=== PATIENT | female | born 1970 | race American Indian/Alaskan Native ===

== ENCOUNTER 2023-08-02 12:36 | Emergency (ER) | payer MEDICAID | END 2023-08-02 12:56 | disposition left against medical advice (07) | LOC: DL.ED 12:36 | DX: Z53.21 Procedure and treatment not carried out due to patient leaving prior to being seen by health care provider (principal) ==

== ENCOUNTER 2023-08-02 17:03 | Emergency (ER) | payer MEDICAID ==
[2023-08-02 18:42] LABS: CORONAVIRUS COVID-19 NAA NEGATIVE (NEGATIVE); INFLUENZA A NAA NEGATIVE (NEGATIVE); INFLUENZA B NAA NEGATIVE (NEGATIVE); RESPIRATORY SYNCYTIAL VIR NAA NEGATIVE (NEGATIVE)
== END 2023-08-02 19:00 | disposition home or self-care (01) ==
LOC: DL.ED 17:03
DX: J04.0 Acute laryngitis (principal); M76.62 Achilles tendinitis, left leg; I10 Essential (primary) hypertension; F17.210 Nicotine dependence, cigarettes, uncomplicated; Z20.822 Contact with and (suspected) exposure to COVID-19
CPT/HCPCS: 0241U; 87081; 87430; 99282; 99283

== ENCOUNTER 2023-08-22 17:56 | Emergency (ER) | payer MEDICAID ==
[2023-08-22] MEDS ORDERED: Take Home: predniSONE 20 MG, 4 Tab Pack PO ONE (18:12)
[2023-08-22] MEDS ORDERED: Amoxicillin 500 MG Cap PO ONE (18:12)
[2023-08-22] MEDS ORDERED: Take Home: Amoxicillin 500 MG, 6 Cap Pack PO ONE (18:12)
[2023-08-22] MEDS ORDERED: diphenhydrAMINE 50 MG Cap PO ONE (18:12)
[2023-08-22] MEDS ORDERED: predniSONE 20 MG Tab PO ONE (18:12)
== END 2023-08-22 19:10 | disposition home or self-care (01) ==
LOC: DL.ED 17:56
DX: L23.9 Allergic contact dermatitis, unspecified cause (principal); J04.0 Acute laryngitis; K04.7 Periapical abscess without sinus
CPT/HCPCS: 70360; 99283; A9270; J7512; Q0163

== ENCOUNTER 2023-08-26 14:50 | Emergency (ER) | payer MEDICAID | END 2023-08-26 15:25 | disposition left against medical advice (07) | LOC: DL.ED 14:50 | DX: Z53.21 Procedure and treatment not carried out due to patient leaving prior to being seen by health care provider (principal) | CPT/HCPCS: 99283 ==

== ENCOUNTER 2023-08-27 11:01 | Emergency (ER) | payer MEDICAID | END 2023-08-27 12:19 | disposition home or self-care (01) | LOC: DL.ED 11:01 | DX: S62.646A Nondisplaced fracture of proximal phalanx of right little finger, initial encounter for closed fracture (principal); I10 Essential (primary) hypertension; Z79.899 Other long term (current) drug therapy; W00.0XXA Fall on same level due to ice and snow, initial encounter; Y93.01 Activity, walking, marching and hiking | CPT/HCPCS: 73120-RT; 99283 ==

== ENCOUNTER 2023-12-09 20:22 | Emergency (ER) | payer MEDICAID | END 2023-12-09 20:50 | disposition home or self-care (01) | LOC: DL.ED 20:22 | DX: F10.120 Alcohol abuse with intoxication, uncomplicated (principal); I10 Essential (primary) hypertension; Y90.9 Presence of alcohol in blood, level not specified | CPT/HCPCS: 99283 ==

== ENCOUNTER 2024-01-16 11:29 | Emergency (ER) | payer MEDICAID ==
[2024-01-16 12:04] LABS: BASOPHILS PERCENT AUTO 0.2 % (0.0-1.0); EOSINOPHILS PERCENT AUTO 3.9 % (1.0-3.0); HEMATOCRIT 36.7 % (37.0-47.0); HEMOGLOBIN 12.1 g/dL (12.0-16.0); LYMPHOCYTES PERCENT AUTO 22.5 % (20.5-50.1); MONOCYTES PERCENT AUTO 7.1 % (2-8); NEUTROPHILS PERCENT AUTO 66.3 % (42.2-75.2); PLATELET COUNT,PLT 318 10^3/uL (150-450); RED BLOOD CELL COUNT 4.17 10^6/uL (4.2-5.4); WHITE BLOOD CELL COUNT,WBC 5.4 10^3/uL (5.0-10.0)
[2024-01-16 12:15] LABS: APPEARANCE,URINE CLEAR (CLEAR); BILIRUBIN,URINE NEGATIVE (NEGATIVE); COLOR,URINE LIGHT YELLOW (YELLOW); GLUCOSE,URINE NEGATIVE (NEGATIVE); KETONES,URINE NEGATIVE (NEGATIVE); LEUKOCYTE ESTERASE,URINE NEGATIVE (NEGATIVE); NITRITE,URINE NEGATIVE (NEGATIVE); OCCULT BLOOD,URINE NEGATIVE (NEGATIVE); PROTEIN,URINE NEGATIVE (NEGATIVE); UROBILINOGEN,URINE 0.2 mg/dL (0.2-1.0)
[2024-01-16 12:17] LABS: AMPHETAMINES,URINE NEGATIVE (NEGATIVE); BARBITURATES,URINE NEGATIVE (NEGATIVE); BENZODIAZEPINE,URINE NEGATIVE (NEGATIVE); MDMA (ECSTASY), URINE NEGATIVE (NEGATIVE); METHADONE,URINE NEGATIVE (NEGATIVE); METHAMPHETAMINES,URINE NEGATIVE (NEGATIVE); OPIATES,URINE NEGATIVE (NEGATIVE); OXYCODONE,URINE NEGATIVE (NEGATIVE); PHENCYCLIDINE,URINE NEGATIVE (NEGATIVE); TCA,URINE NEGATIVE (NEGATIVE)
[2024-01-16] MEDS: LORazepam 2 MG/ML SDV IVPUSH ONE (12:22)
[2024-01-16] MEDS: Venlafaxine 150 MG Cap.ER PO ONE ×2 (12:25→13:43)
[2024-01-16] MEDS: Sodium Chloride 0.9% 1,000 ML IV ONE (12:26)
[2024-01-16] MEDS: Sodium Chloride 0.9% 10 ML Syringe FLUSH PRN (12:26)
[2024-01-16 12:28] LABS: A/G RATIO 0.9; ALANINE AMINOTRANSFERASE,ALT 28 U/L (14-59); ALBUMIN 3.6 g/dL (3.4-5.0); ALKALINE PHOSPHATASE 143 U/L (46-116); ANION GAP 15.3 mEq/L (7-13); ASPARTATE AMNIOTRANSFERASE,AST 16 U/L (15-37); BILIRUBIN TOTAL 0.3 mg/dL (0.2-1.0); BLOOD UREA NITROGEN,BUN 12 mg/dL (7-18); BUN/CREATININE RATIO 16.7 (No establ ref range); CALCIUM 8.7 mg/dL (8.5-10.1); CARBON DIOXIDE,CO2 25 mmol/L (21-32); CHLORIDE,CL 104 mmol/L (98-107); CREATININE 0.72 mg/dL (0.55-1.02); EST CRCL DRUG DOSING (CG) 69.82 mL/min; ESTIMATED GFR 99 mL/min (>=60); ETHANOL BLOOD MEDICAL < 3 mg/dL (0); GLUCOSE RANDOM 119 mg/dL (70-99); LIPASE 41 U/L (16-77); POTASSIUM,K 4.3 mmol/L (3.5-5.1); PROTEIN TOTAL,TP 7.6 g/dL (6.4-8.2); SODIUM,NA 140 mmol/L (136-145)
[2024-01-16] MEDS: Take Home: LORazepam 1 MG Tab, 2 Tab Pack PO ONE (13:43)
== END 2024-01-16 13:43 | disposition home or self-care (01) ==
LOC: DL.ED 11:29
DX: F43.22 Adjustment disorder with anxiety (principal); T43.205A Adverse effect of unspecified antidepressants, initial encounter; I10 Essential (primary) hypertension; Z88.8 Allergy status to other drugs, medicaments and biological substances
CPT/HCPCS: 36415; 71045; 80053; 80305; 80307; 81003; 83690; 84484; 85025; 93005; 96361; 96374; 99285; A9270; J2060; J7030; 93010; 99284; J3490

== ENCOUNTER 2025-01-14 16:18 | Emergency (ER) | payer MEDICAID, OTHER ==
[2025-01-14] MEDS: Acetaminophen 500 MG Tab PO ONE (16:56)
[2025-01-14] MEDS: Ketorolac 30 MG/ML SDV IM ONE (16:57)
[2025-01-14] MEDS: Take Home: Cyclobenzaprine 10 MG Tab, 4 Tab Pack PO ONE (16:57)
[2025-01-14] MEDS: Cyclobenzaprine 10 MG Tab PO ONE (16:57)
== END 2025-01-14 17:08 | disposition home or self-care (01) ==
LOC: DL.ED 16:18
DX: M62.830 Muscle spasm of back (principal); I10 Essential (primary) hypertension; Z79.899 Other long term (current) drug therapy
CPT/HCPCS: 96372; 99283; 99284; A9270; J1885

== ENCOUNTER 2025-01-20 21:10 | Emergency (ER) | payer MEDICAID ==
[2025-01-20 21:33] LABS: BASOPHILS PERCENT AUTO 0.3 % (0.0-1.0); EOSINOPHILS PERCENT AUTO 3.4 % (1.0-3.0); HEMATOCRIT 35.2 % (37.0-47.0); HEMOGLOBIN 12.7 g/dL (12.0-16.0); LYMPHOCYTES PERCENT AUTO 34.7 % (20.5-50.1); MEAN CORPUSCULAR HGB CONC 36.1 g/dL (33.0-35.0); MEAN CORPUSCULAR VOLUME 83.2 fL (80-100); NEUTROPHILS PERCENT AUTO 53.6 % (42.2-75.2); PLATELET COUNT,PLT 308 10^3/uL (150-450); RED BLOOD CELL COUNT 4.23 10^6/uL (4.2-5.4); WHITE BLOOD CELL COUNT,WBC 6.8 10^3/uL (5.0-10.0)
[2025-01-20 22:02] LABS: A/G RATIO 0.78; ALBUMIN 3.1 g/dL (3.4-5.0); ANION GAP 13.4 mEq/L (7-13); BILIRUBIN TOTAL 0.2 mg/dL (0.2-1.0); BUN/CREATININE RATIO 14.1 (No establ ref range); CALCIUM 8.3 mg/dL (8.5-10.1); CREATININE 0.71 mg/dL (0.55-1.02); EST CRCL DRUG DOSING (CG) 76.4 mL/min; MAGNESIUM 2.2 mg/dL (1.8-2.4); POTASSIUM,K 3.4 mmol/L (3.5-5.1); PROTEIN TOTAL,TP 7.1 g/dL (6.4-8.2)
[2025-01-20 22:02] LABS: APPEARANCE,URINE CLEAR (CLEAR); BILIRUBIN,URINE NEGATIVE (NEGATIVE); COLOR,URINE YELLOW (YELLOW); GLUCOSE,URINE NEGATIVE (NEGATIVE); KETONES,URINE NEGATIVE (NEGATIVE); LEUKOCYTE ESTERASE,URINE NEGATIVE (NEGATIVE); NITRITE,URINE NEGATIVE (NEGATIVE); OCCULT BLOOD,URINE NEGATIVE (NEGATIVE); PROTEIN,URINE NEGATIVE (NEGATIVE); UROBILINOGEN,URINE 0.2 mg/dL (0.2-1.0)
[2025-01-20 22:03] LABS: AMPHETAMINES,URINE NEGATIVE (NEGATIVE); BARBITURATES,URINE NEGATIVE (NEGATIVE); BENZODIAZEPINE,URINE NEGATIVE (NEGATIVE); MDMA (ECSTASY), URINE NEGATIVE (NEGATIVE); METHADONE,URINE NEGATIVE (NEGATIVE); METHAMPHETAMINES,URINE NEGATIVE (NEGATIVE); OPIATES,URINE NEGATIVE (NEGATIVE); OXYCODONE,URINE NEGATIVE (NEGATIVE); PHENCYCLIDINE,URINE NEGATIVE (NEGATIVE); TCA,URINE NEGATIVE (NEGATIVE)
== END 2025-01-21 05:30 | disposition home or self-care (01) ==
LOC: DL.ED 21:10
DX: F10.129 Alcohol abuse with intoxication, unspecified (principal); I10 Essential (primary) hypertension; Z79.899 Other long term (current) drug therapy
CPT/HCPCS: 36415; 80053; 80305-QW; 80307; 81003; 83690; 83735; 85025; 99283; 99284

== ENCOUNTER 2025-01-28 01:14 | Emergency (ER) | payer MEDICAID ==
[2025-01-28] MEDS ORDERED: Sodium Chloride 0.9% 10 ML Syringe FLUSH PRN (02:15)
[2025-01-28 03:33] LABS: BASOPHILS PERCENT AUTO 0.2 % (0.0-1.0); EOSINOPHILS PERCENT AUTO 2.5 % (1.0-3.0); HEMATOCRIT 35.5 % (37.0-47.0); HEMOGLOBIN 11.4 g/dL (12.0-16.0); LYMPHOCYTES PERCENT AUTO 22.6 % (20.5-50.1); MEAN CORPUSCULAR HGB CONC 32.1 g/dL (33.0-35.0); MEAN CORPUSCULAR VOLUME 83.9 fL (80-100); MONOCYTES PERCENT AUTO 6.4 % (2-8); NEUTROPHILS PERCENT AUTO 68.3 % (42.2-75.2); PLATELET COUNT,PLT 308 10^3/uL (150-450); RED BLOOD CELL COUNT 4.23 10^6/uL (4.2-5.4); WHITE BLOOD CELL COUNT,WBC 6.4 10^3/uL (5.0-10.0)
[2025-01-28 04:08] LABS: ANION GAP 12.6 mEq/L (7-13); BILIRUBIN TOTAL 0.2 mg/dL (0.2-1.0); BUN/CREATININE RATIO 9.9 (No establ ref range); CREATININE 0.71 mg/dL (0.55-1.02); EST CRCL DRUG DOSING (CG) 73.19 mL/min; MAGNESIUM 2.2 mg/dL (1.8-2.4); POTASSIUM,K 3.6 mmol/L (3.5-5.1); PROTEIN TOTAL,TP 7.1 g/dL (6.4-8.2)
[2025-01-28 04:11] LABS: A/G RATIO 0.73
== END 2025-01-28 06:36 | disposition home or self-care (01) ==
LOC: DL.ED 01:14
DX: F10.120 Alcohol abuse with intoxication, uncomplicated (principal); I10 Essential (primary) hypertension; F17.200 Nicotine dependence, unspecified, uncomplicated; Z79.899 Other long term (current) drug therapy
CPT/HCPCS: 36415; 80053; 80307; 83690; 83735; 85025; 99284

== ENCOUNTER 2025-01-31 12:45 | Emergency (ER) | payer MEDICAID ==
[2025-01-31] MEDS ORDERED: Sodium Chloride 0.9% 10 ML Syringe FLUSH PRN (13:08)
[2025-01-31] MEDS: Sodium Chloride 0.9% 1,000 ML IV SCH (13:48)
[2025-01-31] MEDS: Ondansetron 4 MG/2 ML SDV IVPUSH ONE (13:48)
[2025-01-31 14:13] LABS: BASOPHILS PERCENT AUTO 0.2 % (0.0-1.0); EOSINOPHILS PERCENT AUTO 2.2 % (1.0-3.0); HEMATOCRIT 39.4 % (37.0-47.0); HEMOGLOBIN 13.2 g/dL (12.0-16.0); LYMPHOCYTES PERCENT AUTO 20.2 % (20.5-50.1); MEAN CORPUSCULAR HEMOGLOBIN 28.2 pg (27.0-34.0); MEAN CORPUSCULAR HGB CONC 33.5 g/dL (33.0-35.0); MEAN CORPUSCULAR VOLUME 84.2 fL (80-100); MONOCYTES PERCENT AUTO 7.2 % (2-8); NEUTROPHILS PERCENT AUTO 70.2 % (42.2-75.2); PLATELET COUNT,PLT 313 10^3/uL (150-450); RED BLOOD CELL COUNT 4.68 10^6/uL (4.2-5.4); WHITE BLOOD CELL COUNT,WBC 8.6 10^3/uL (5.0-10.0)
[2025-01-31 14:32] LABS: ALBUMIN 3.3 g/dL (3.4-5.0); ANION GAP 12.4 mEq/L (7-13); BILIRUBIN TOTAL 0.2 mg/dL (0.2-1.0); BUN/CREATININE RATIO 3.7 (No establ ref range); CALCIUM 8.7 mg/dL (8.5-10.1); CREATININE 0.82 mg/dL (0.55-1.02); EST CRCL DRUG DOSING (CG) 57.81 mL/min; MAGNESIUM 2.2 mg/dL (1.8-2.4); POTASSIUM,K 4.4 mmol/L (3.5-5.1); PROTEIN TOTAL,TP 7.8 g/dL (6.4-8.2)
[2025-01-31 14:33] LABS: A/G RATIO 0.73
== END 2025-01-31 17:00 | disposition home or self-care (01) ==
LOC: DL.ED 12:45
DX: F10.120 Alcohol abuse with intoxication, uncomplicated (principal); I10 Essential (primary) hypertension; Z79.899 Other long term (current) drug therapy
CPT/HCPCS: 36415; 80053; 80307; 83690; 83735; 85025; 93005; 93010; 96361; 96374; 99284; J2405; J7030

== ENCOUNTER 2025-02-28 18:13 | Emergency (ER) | payer MEDICAID | END 2025-02-28 19:19 | disposition home or self-care (01) | LOC: DL.ED 18:13 | DX: S62.502A Fracture of unspecified phalanx of left thumb, initial encounter for closed fracture (principal); I10 Essential (primary) hypertension; Z79.899 Other long term (current) drug therapy; V19.9XXA Pedal cyclist (driver) (passenger) injured in unspecified traffic accident, initial encounter | CPT/HCPCS: 73140-FA; 73630-LT; 99283 ==

== ENCOUNTER 2025-03-23 22:03 | Emergency (ER) | payer MEDICAID ==
[2025-03-23] MEDS: diphenhydrAMINE 50 MG/ML SDV IM ONE (22:15)
[2025-03-23] MEDS: Take Home: hydrOXYzine HCl 25 MG Tab, 4 Tab Pack PO ONE (22:15)
== END 2025-03-23 22:20 | disposition home or self-care (01) ==
LOC: DL.ED 22:03
DX: F15.10 Other stimulant abuse, uncomplicated (principal); I10 Essential (primary) hypertension; Z79.899 Other long term (current) drug therapy
CPT/HCPCS: 96372; 99283; J1200

== ENCOUNTER 2025-04-01 16:29 | Emergency (ER) | payer MEDICAID | END 2025-04-01 18:03 | disposition home or self-care (01) | LOC: DL.ED 16:29 | DX: M79.645 Pain in left finger(s) (principal); M79.675 Pain in left toe(s); I10 Essential (primary) hypertension; F17.210 Nicotine dependence, cigarettes, uncomplicated; Z79.899 Other long term (current) drug therapy; S62.502D Fracture of unspecified phalanx of left thumb, subsequent encounter for fracture with routine healing; V18.2XXD Unspecified pedal cyclist injured in noncollision transport accident in nontraffic accident, subsequent encounter | CPT/HCPCS: 99283 ==

== ENCOUNTER 2025-04-13 13:34 | Emergency (ER) | payer MEDICAID ==
[2025-04-13 14:03] LABS: BASOPHILS PERCENT AUTO 0.2 % (0.0-1.0); EOSINOPHILS PERCENT AUTO 1.0 % (1.0-3.0); LYMPHOCYTES PERCENT AUTO 27.1 % (20.5-50.1); MONOCYTES PERCENT AUTO 9.2 % (2-8); NEUTROPHILS PERCENT AUTO 62.5 % (42.2-75.2); PLATELET COUNT,PLT 272 10^3/uL (150-450); RED BLOOD CELL COUNT 4.84 10^6/uL (4.2-5.4); WHITE BLOOD CELL COUNT,WBC 6.1 10^3/uL (5.0-10.0)
[2025-04-13] MEDS: MVI, Adult with Vitamin K 10 ML, Folic Acid 1 MG, Thiamine 100 MG in Lactated Ringers 1... IV ONE (14:04)
[2025-04-13 14:22] LABS: A/G RATIO 0.9; ALANINE AMINOTRANSFERASE,ALT 137.0 U/L (14-59); ASPARTATE AMNIOTRANSFERASE,AST 104.0 U/L (15-37); BILIRUBIN TOTAL 0.4 mg/dL (0.2-1.0); BLOOD UREA NITROGEN,BUN 5.0 mg/dL (7-18); CARBON DIOXIDE,CO2 25.0 mmol/L (21-32); CHLORIDE,CL 103.0 mmol/L (98-107); CREATININE 0.72 mg/dL (0.55-1.02); EST CRCL DRUG DOSING (CG) 75.34 mL/min; ETHANOL BLOOD MEDICAL 263.0 mg/dL (0); GLUCOSE RANDOM 94.0 mg/dL (70-99); POTASSIUM,K 2.7 mmol/L (3.5-5.1); PROTEIN TOTAL,TP 8.1 g/dL (6.4-8.2); SODIUM,NA 141.0 mmol/L (136-145)
[2025-04-13 14:23] LABS: ESTIMATED GFR 98.0 mL/min (>=60)
[2025-04-13] MEDS: Potassium Chloride 10 MEQ Tab.ER PO ONE (15:08)
== END 2025-04-13 15:15 | disposition home or self-care (01) ==
LOC: DL.ED 13:34
DX: F10.920 Alcohol use, unspecified with intoxication, uncomplicated (principal); E87.6 Hypokalemia; I10 Essential (primary) hypertension; Z79.899 Other long term (current) drug therapy; Y90.8 Blood alcohol level of 240 mg/100 ml or more
CPT/HCPCS: 36415; 80053; 80307; 85025; 96365; 99284; A9270; J1808; J3411; J7120; J3490